=== PATIENT | female | born 1990 | race Caucasian/White ===

== ENCOUNTER → 2019-03-09 12:53 | Outpatient (CLI) | payer OTHER, SELFPAY ==
[2019-03-12 11:42] LABS: HPV Reflexed? NOT INDICATED
== END ==
PROVIDERS: Family Provider Family Medicine; PCP Family Medicine; Referring Provider Family Medicine; Visit Provider Family Medicine
DX: Z12.4 Encounter for screening for malignant neoplasm of cervix (principal)
CPT/HCPCS: 88175; G0145

== ENCOUNTER → 2020-02-25 | Outpatient (CLI) | payer OTHER, SELFPAY ==
[2020-02-25 10:32] VITALS: BMI 23.0
[2020-02-25 15:13] LABS: Amphetamine Urine VISTA NEGATIVE (<1000 ng/mL); Barbiturate Urine VISTA NEGATIVE (< 200 ng/mL); Benzodiazepine Urine VISTA NEGATIVE (< 200 ng/mL); Cocaine Urine VISTA NEGATIVE (< 300 ng/mL); Ecstacy Urine VISTA NEGATIVE (< 500 ng/mL); Methadone Urine VISTA NEGATIVE (< 300 ng/mL); PCP Urine VISTA NEGATIVE (< 25 ng/mL); THC Urine VISTA NEGATIVE (< 50 ng/mL); Vista UDS pH Range 6
[2020-02-28 03:07] LABS: Chlamydia By Nucleic Acid AMP Negative (Negative)
[2020-02-28 08:27] LABS: Gonococcus By Nucleic Acid AMP Negative (Negative)
== END | disposition home or self-care (01) ==
LOC: LABSPEC 13:48
PROVIDERS: PCP Family Medicine; Referring Provider Obstetrics & Gynecology; Visit Provider Obstetrics & Gynecology
DX: Z34.00 Encounter for supervision of normal first pregnancy, unspecified trimester (principal)
CPT/HCPCS: 80307; 87086; 87088; 87491; 87591

== ENCOUNTER → 2020-03-28 | Outpatient (CLI) | payer OTHER, SELFPAY ==
[2020-03-28 08:08] VITALS: BMI 23.1
[2020-03-28 09:33] LABS: Absolute Neutrophil Count 5.7 X10^3/uL (2.0-7.7); Basophil# 0.01 X10^3/uL; Basophil% 0.1 % (0-1); Eosinophil# 0.08 X10^3/uL; Hematocrit 39.3 % (37-47); Hemoglobin 13.2 g/dL (12.0-15.0); Lymphocyte % 22.5 % (19-41); Mean Corp Hgb Conc 33.6 g/dL (32-36); Mean Corpuscular Hgb 31.9 pg (27.0-32.0); Mean Corpuscular Volume 94.9 fL (81-99); Mean Platelet Vol. 10.2 fl (6.2-12.0); Monocyte# 0.38 X10^3/uL; Monocyte% 4.7 % (0-10); NRBC Flagged by Analyzer 0 % (0-5); Neutrophil # 5.71 X10^3/uL (2.7-7.7); Neutrophil % 71.3 % (47-70); Platelet Count 283 K/mm3 (150-450); RBC Distribution Width CV 12.4 % (11.6-14.6); RBC Distribution Width SD 42.7 fl (35.1-43.9); Red Blood Count 4.14 M/mm3 (4.2-5.4)
[2020-03-28 09:53] LABS: NATERA MAILED SPECIMEN
[2020-03-28 10:38] LABS: HIV - WCH Non-Reactive (Nonreactive); Hepatitis B Surface Antigen Non-Reactive (Nonreactive); Hepatitis C Antibody Non-Reactive (Nonreactive); Rubella IgG 72.8 IU/mL
[2020-04-03 03:02] LABS: Rapid Plasmin Reagin (RPR) NONREACTIVE (NONREACTIVE)
== END | disposition home or self-care (01) ==
LOC: LAB 08:50
PROVIDERS: Obstetrics & Gynecology; PCP Family Medicine; Referring Provider Obstetrics & Gynecology; Visit Provider Obstetrics & Gynecology
DX: Z34.81 Encounter for supervision of other normal pregnancy, first trimester (principal)
CPT/HCPCS: 36415; 85025; 86592; 86703; 86762; 86803; 86850; 86900; 86901; 87340

== ENCOUNTER → 2020-07-18 07:18 | Outpatient (CLI) | payer OTHER, SELFPAY ==
[2020-06-20 08:48] VITALS: BMI 24.3
[2020-07-18 08:08] LABS: Absolute Lymphocyte Count 1.72 X10^3/uL (0.83-4.51); Absolute Neutrophil Count 5.7 X10^3/uL (2.0-7.7); Basophil# 0.02 X10^3/uL; Basophil% 0.3 % (0-1); Eosinophil# 0.05 X10^3/uL; Eosinophils% 0.6 % (0-5); Hematocrit 35.1 % (37-47); Hemoglobin 12.1 g/dL (12.0-15.0); Lymphocyte # 1.72 X10^3/ul (4.0); Lymphocyte % 21.6 % (19-41); Mean Corp Hgb Conc 34.5 g/dL (32-36); Mean Corpuscular Hgb 32.8 pg (27.0-32.0); Mean Corpuscular Volume 95.1 fL (81-99); Mean Platelet Vol. 9.4 fl (6.2-12.0); Monocyte# 0.43 X10^3/uL; Monocyte% 5.4 % (0-10); NRBC Flagged by Analyzer 0 % (0-5); Neutrophil # 5.67 X10^3/uL (2.7-7.7); Neutrophil % 71.1 % (47-70); Platelet Count 246 K/mm3 (150-450); RBC Distribution Width CV 13.2 % (11.6-14.6); RBC Distribution Width SD 45.4 fl (35.1-43.9); Red Blood Count 3.69 M/mm3 (4.2-5.4)
[2020-07-18 08:34] LABS: Glucose Challenge Gest 1H 50g 105 mg/dL (70-140)
== END ==
PROVIDERS: PCP Family Medicine; Referring Provider Obstetrics & Gynecology; Visit Provider Obstetrics & Gynecology
DX: Z34.00 Encounter for supervision of normal first pregnancy, unspecified trimester (principal)
CPT/HCPCS: 36415; 82950; 85025

== ENCOUNTER → 2020-09-12 12:44 | Outpatient (CLI) | payer OTHER, SELFPAY ==
[2020-09-12 08:30] VITALS: BMI 24.7
--- NOTE | 2020-09-12 12:45 | US_ITS ---
STUDY: SECOND AND THIRD TRIMESTER OBSTETRICAL ULTRASOUND REASON FOR EXAM: Female, 29 years old growth . Small for dates. LMP: 12/29/2019 TECHNIQUE: Transabdominal TECHNICAL QUALITY: Adequate. PRIOR ULTRASOUND: None. FINDINGS: There is a single intrauterine fetus. The fetus is in a cephalic presentation. There is demonstrated cardiac activity with a heart rate of 144 bpm. There is a normal amniotic fluid volume. The largest amniotic fluid pocket measures 3.6 cm. The amniotic fluid index (CLARISSA) is 10.8 cm. The placenta is anterior in location and is not low lying. There are Grade 1 placental changes. The cervix was not utilized due to the head positioning. The adnexal regions are not visualized. BIOMETRY: BPD: 8.72 cm: 35 weeks, 1 days HC: 31.54 cm: 35 weeks, 2 days AC: 32.42 cm: 36 weeks, 2 days FL: 6.69 cm: 34 weeks, 2 days CI: 80.7% FL/BPD: 78% FL/HC: FL/AC: 20.6% HC/AC: 0.97 age by current US: 35 weeks, 0 days. KRISTA by current US: 10/17/2020. Estimated weight: 2756 grams, +/- 413 grams, 27 %. Age by LMP: 36 weeks, 6 days. KRISTA by LMP: 10/04/2020. US/OB Limited With Biometrics IMPRESSION: Single live intrauterine gestation with a mean gestational age of 36 weeks and 6 days. Electronically Signed: Rojelio Bojorquez MD at 15:23 EDT , Service support ,
== END ==
PROVIDERS: PCP Family Medicine; Referring Provider Obstetrics & Gynecology; Visit Provider Obstetrics & Gynecology
DX: O26.849 Uterine size-date discrepancy, unspecified trimester (principal); Z3A.00 Weeks of gestation of pregnancy not specified
CPT/HCPCS: 76816; 87081

== ENCOUNTER 2020-09-26 10:43 | Inpatient (IN) | payer OTHER, SELFPAY ==
[2020-08-01 08:24] VITALS: BMI 24.4
[2020-09-26] VITALS (56 sets, daily range): BP systolic 101–150; BP diastolic 54–82; PULSE 59–107; TEMP 36.8–37.6; O2SAT 88–100; BMI 24.9; BMI 24.5
[2020-09-26] MEDS: Lactated Ringers 1,000 ML 50 ML IV (11:00)
[2020-09-26 11:13] LABS: Absolute Neutrophil Count 5.7 X10^3/uL (2.0-7.7); Basophil# 0.02 X10^3/uL; Basophil% 0.3 % (0-1); Eosinophil# 0.03 X10^3/uL; Eosinophils% 0.4 % (0-5); Hematocrit 38.2 % (37-47); Hemoglobin 13.3 g/dL (12.0-15.0); Lymphocyte % 19.1 % (19-41); Mean Corp Hgb Conc 34.8 g/dL (32-36); Mean Corpuscular Hgb 33.1 pg (27.0-32.0); Mean Platelet Vol. 10.2 fl (6.2-12.0); Monocyte# 0.56 X10^3/uL; Monocyte% 7.1 % (0-10); NRBC Flagged by Analyzer 0 % (0-5); Neutrophil # 5.71 X10^3/uL (2.7-7.7); Neutrophil % 72.6 % (47-70); Platelet Count 219 K/mm3 (150-450); RBC Distribution Width SD 45.4 fl (35.1-43.9); Red Blood Count 4.02 M/mm3 (4.2-5.4); White Blood Count 7.9 K/mm3 (4.4-11.0)
[2020-09-26] MEDS: Oxytocin 30 units/NS 500 ml 30 UNITS/500 ML IV.SOLN IV (11:49)
--- NOTE | 2020-09-26 11:59 | PCM.HPOB.BLA ---
- Problem List (1) Oligohydramnios Status: Acute (2) 37 weeks gestation of Status: Acute Comment: received covid vaccine doesn't need tested (3) History of tetanus, diphtheria, and acellular pertussis booster vaccination (Tdap) Status: Acute Comment: Given 08/01/20 (4) Status: Acute Qualifiers: Comment: genetic- low risk, carrier and NTD, negative ; NL anatomy (5) Supervision of normal first Status: Acute Qualifiers: Comment: [id number] KRISTA: 10/04/20 Boy! Anurag Spouse: Chris (Will) History and Physical Date of Admission: 09/26/20 Intake Vital Signs 09/26/20 Height 5 ft 4 in 09/26/20 Weight: 145 lb 09/26/20 BMI 24.9 09/26/20 BP 122/86 H Intake Visit Reasons: 38 WK OB Chief Complaint: est ob Merchandising Lead Required: No Is patient in pain?: No Allergies No Known Allergies Allergy (Verified 09/26/20 08:51) Medications multivitamin no.47-iron fum 27 mg-folate no.1 1 mg-dha 300 mg capsule cap PO 02/25/20 [History Confirmed 09/26/20] Last Menstral Period: 11/23/19 Zika: Zika virus screening: Negative : No PFSH PFSH Family History Father Cancer throat Social History (Updated 09/26/20 @ 09:[address] 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 Upon evaluation patient was found to have low fundal height and CLARISSA was checked and had to be 3 cm. Patient denies any loss of fluid admits good movement. OB Visit KRISTA Calculator Estimated Delivery Date Method Current WG Current Estimate 10/04/20 Ultrasound #1 38w 6d Other Estimates 08/29/20 LMP (Uncertain) 44w 0d Expected Delivery Route/Plan Labor Preferences- CB/BF classes: done labor support person: Chris labor intervention preferences: open to standard interventions, wants to stay moving during labor, ok with baby meds pain management options preferred: desires natural labor cut cord/dad catch: cord, maybe delivery : yes PP control planned: undecided discussed possible routes of delivery and associated risks: discussed possible delivery modalities and possible indications for each including R/B/A of , VAVD, FAVD and CS. questions answered. special requests: none Specific Issue/Plans flu vaccine: given 03/28 tdap vaccine: 08/01 rhogam: na LARC form signed: declined movement and labor precautions reviewed. Problem list reviewed and updated with the most current plan of care details and appropriate orders placed. Relevant counseling for the gestational age provided. Continue routine care and follow up unless otherwise noted in visit notes/problem list details Initial Weight: 134 lb Date EGA Weight BP Urine Prot Glucose FHR FuHt Pres Dilation Effaced St Visit Note 02/25/20 8w 2d 134 lb (+0 oz) 116/62 170 GP - CRL 15mm. KRISTA changed as this is 5 weeks off from menses. 03/28/20 12w 6d 135 lb (+16 oz) 116/76 Negative Negative 150 Sm- no vb cramping 04/25/20 16w 6d 135 lb (+16 oz) 116/74 Negative Negative 145 SM- no vb cramping 05/26/20 21w 2d 140 lb (+6 lb) 122/70 Negative Negative 142 MH-Some movement:ant placenta. No VB, LOF. Anatomy US today. Enc CB classes 06/20/20 24w 6d 141 lb 8 oz (+7 lb 8 oz) 120/80 Negative Negative 145 GP - no LOF, VB, DFM, ctx. Discussed COVID vaccine. GCT next visit. 07/18/20 28w 6d 143 lb 4 oz (+9 lb 4 oz) 118/78 Negative Negative 155 28 GP - no LOF, VB, DFM, ctx. 28w labs normal. Will wait on TDAP vaccine as getting COVID vaccine today. 08/01/20 30w 6d 142 lb 6 oz (+8 lb 6 oz) 110/70 Negative Negative 155 30 GP - no LOF, VB, DFM, ctx. Got first covid vaccine. Closing on [place] 08/11. 08/15/20 32w 6d 145 lb (+11 lb) 110/72 Negative Negative 155 32 GP - no LOF, VB, DFM, ctx. Discussed labor preferences and routes of delivery. 08/29/20 34w 6d 143 lb (+9 lb) 118/86 Negative Negative 155 34 GP - no LOF, VB, DFM, ctx. Moved into house last weekend - still need to get nursery set up. 09/12/20 36w 6d 144 lb (+10 lb) 114/80 Negative Negative 150 34 GP - no LOF, VB, DFM, ctx. GBS done today. GP - no LOF, VB, DFM, ctx. GBS done today. Measuring 2w behind. Growth US scheduled. 09/19/20 37w 6d 144 lb (+10 lb) 112/82 155 35 Cephalic 1 60 -1 SM- no vb lof good fm no regular ctx 09/26/20 38w 6d 145 lb (+11 lb) 122/86 Negative Negative 145 32 Cephalic 2 70 -1 SM- no vb lof good fm no regular ctx. discussed low FH, recommend IOL for oligo. CLARISSA 3 cm ACOG First Trimester First Trimester: Desire for , Alcohol, Tobacco Cessation, Illicit/Recreational Drug/Substance Use, Barriers to care, Communication Barriers, Toxoplasmosis Precations, Use of Any medications, Sexual activity, Exercise, Dental Care, Sauna/Hot tub use, Seat Belt use, and Screening for Aneuploidy Second Trimester Second Trimester: Signs and Symptoms of Labor, Selecting a care provider, Reproductive Life Planning, Care Planning, Tobacco Cessation, Depression/Anxiety and Intimate Partner Violence Third Trimester Third Trimester: Pain Management Plans, Labor support person(s), Immediate Larc, Movement Monitoring and Feeding Yes ; discussed Trial of Labor after Counseling or discussed Circumcision preference Diagnostics Diagnostics Diagnostics Blood Type O POSITIVE 03/28/20 Antibody Screen NEGATIVE 03/28/20 Glucose 1 Hr 50 gm 105 mg/dL (70-140) 07/18/20 HIV 1&2 Antibody Non-Reactive (Nonreactive) 03/28/20 Rubella IgG Antibody 72.8 IU/mL 03/28/20 Hgb 12.1 g/dL (12.0-15.0) 07/18/20 Hct 35.1 % (37-47) L 07/18/20 RPR NONREACTIVE (NONREACTIVE) 03/28/20 Details: HIV: Urine Culture: Sequential Screen: NIPT Screen: ROS Const Reports system reviewed and no additional complaints, except as docu Card Reports system reviewed and no additional complaints, except as docu Resp Reports system reviewed and no additional complaints, except as docu GI Reports system reviewed and no additional complaints, except as docu, Reports nausea Reports system reviewed and no additional complaints, except as docu Musc Reports system reviewed and no additional complaints, except as docu Exam Const General: cooperative, healthy appearing, comfortable, anxious HENMT Head: normal to inspection Nose: external nose normal Face and sinus: normal facial exam Neck Neck: normal visual inspection, full ROM, no lymphadenopathy Thyroid: thyroid normal Chest Chest palpation & inspection: normal inspection of the chest Resp Effort & Inspection: normal respiratory effort GI Inspection: normal to inspection Palpation: soft, other (gravid uterus) Other: infant vertex and appropriate size for gestational age Other: Cervical Exam: Extrem General: pedal edema Results POC Urinalysis 2 Dip (Clinic) Office Urine Glucose Negative Last Edit by Nicole Delgado on 09/26/20 08:55 Office Urine Protein Negative Last Edit by Nicole Delgado on 09/26/20 08:55 Assessment & Plan Problems 1. Encounter for supervision of normal first in third trimester Z34.03 [id number] KRISTA: 10/04/20 Boy! Anurag Spouse: Chris (Will) 2. 38 weeks gestation of Z3A.38 genetic- low risk, carrier and NTD, negative ; NL anatomy 3. History of tetanus, diphtheria, and acellular pertussis booster vaccination (Tdap) Z92.29 Given 08/01/20 4. 37 weeks gestation of Z3A.37 received covid vaccine doesn't need tested Plan Patient presents IOL, plan management for with pit/fb. Pain management: plans epidural. GBS negative. Management of any complications: Oligo CLARISSA 3 cm I have reviewed the [facility] and made any clinically relevant updates. UPDATE- I have seen the patient and performed any clinically relevant updates to the history and physical exam. Jacqueline Mccullough MD
[2020-09-26] MEDS: 0.9% Normal Saline Single 100 ML IV.SOLN. INTRA-UTER (12:35)
[2020-09-26] MEDS: Lactated Ringers 500 ML 999 ML IV (19:59)
[2020-09-26] MEDS: fentaNYL-bupivacaine (epidural) 100 ML BAG EPIDURAL (21:41)
[2020-09-26] MEDS: Lactated Ringers 1,000 ML 200 ML IV (22:19)
[2020-09-26] MEDS: Oxytocin 30 units/NS 500 ml 30 UNITS/500 ML IV.SOLN 334 UNITS IV (23:33)
[2020-09-26] MEDS: Methylergonovine 0.2 MG/ML Ampul IM (23:35)
--- NOTE | 2020-09-26 23:47 | PCM.OPRPT ---
Problem List (1) Oligohydramnios Status: Acute (2) 37 weeks gestation of Status: Acute Comment: received covid vaccine doesn't need tested (3) History of tetanus, diphtheria, and acellular pertussis booster vaccination (Tdap) Status: Acute Comment: Given 08/01/20 (4) Status: Acute Qualifiers: Comment: genetic- low risk, carrier and NTD, negative ; NL anatomy (5) Supervision of normal first Status: Acute Qualifiers: Comment: [id number] KRISTA: 10/04/20 Boy! Anurag Spouse: Chris (Will) Vaginal Delivery Maternal Presentation: Active Labor 29-year-old G1, P0 at 38 weeks gestation admitted for induction of labor for oligohydramnios. Patient was induced with Grurola bulb and Pitocin. Method of Induction: Pitocin, Gurrola Bulb Amniotic Membrane Rupture Type: Artificial Amniotic Fluid Description: Clear Final KRISTA: 10/04/20 Gestational age: 38 Weeks and 6 Days Date of Procedure: 09/26/20 Pre-Operative Diagnosis: Term , induction for oligohydramnios Post-Operative Diagnosis: Same Surgery/ Procedure Performed: Spontaneous Vaginal Delivery Type of Anesthesia: Epidural Description of Procedure: Patient began pushing and after 20 minutes delivered the head in the CRISTOBAL presentation. The head was delivered atraumatically and no nuchal cord was noted. The anterior and posterior shoulders delivered without complication followed by the rest of the infant and the infant was placed on the maternal abdomen. Delayed cord clamping was employed for approximately 60 seconds. Cord was clamped and cut and gentle traction was applied to the cord and the placenta delivered spontaneously immediately following it was noted to be intact with three-vessel cord. The perineum and vagina were inspected and a midline first-degree perineal laceration was noted and repaired in the standard fashion using 3-0 Vicryl repeat suture. EBL was 250 cc. Patient and infant tolerated delivery well. Presentation: Vertex, CIRSTOBAL Placental Delivery Description: Spontaneous Placenta Disposition: [facility] Cord Vessel Description: 3 Vessels Cord Entanglement: None Drain: Gurrola to straight drain Estimated Blood Loss: 250 Infant A gender: Male (1 minute): 8 (5 minute): 9 Episiotomy Description: None Laceration: Midline, Perineal Extension/lac, 1st degree Medications given after delivery: IV Pitocin, IM Methergin Complications: None Multi Select Codes - Urinary/Genital Urinary/Genital CPT Codes: 07625 Vaginal Delivery [facility]
--- NOTE | 2020-09-26 23:50 | DCINST_ITS ---
Discharge Diet: No Restrictions Discharge Activity: Return to Normal Activity, May not drive while taking narcotic pain medications., May Shower May resume sexual activity in: 4-6 weeks Additional Activity Instructions:: Nothing in the vagina for 4-6 weeks. You may return to work/school in 6 weeks. Call your doctor if your incision/area has: Continuous Slow Oozing, Sudden Increased Bleeding, Increased Pain/ Swelling, Increased Redness, Foul Smelling Discharge Additional Instructions: If you experience any of the following, contact your healthcare provider. * Bleeding that soaks a pad every hour for 2 hours * Fever 100.4 or higher * Unrelieved incision or abdominal pain * Swelling, redness, discharge or bleeding from your incision or episiotomy site * Your incision begins to separate * Problems urinating (including inability to urinate or burning while urinating). * Visual changes * Severe headache * Flu-like symptoms * Pain or redness in one of both of your breasts * Pain, warmth, tenderness or swelling in your legs, especially the calf area * Frequent nausea and vomiting * Symptoms of depression or anxiety If you experience any of the following, call 911 or go to the nearest Emergency Room. * Chest pain * Problems breathing * Seizure activity * Partial or complete paralysis of a body part, slurred speech, weakness or drooping of the face, or a sudden inability to walk or hold your balance Allergies/Adverse Reactions: Allergies No Known Allergies Allergy (Verified 09/26/20 11:17) Medications to take at Discharge Prenatabs FA 09/26/20 When: Call to make an appointment with your doctor in 6 weeks. If you had elevated Blood Pressure or 4th degree laceration you will need to be seen in 2 weeks. Primary Care Physician: Qiana Perkins MD [Primary Care Provider] - Test Results: Test results from this visit will be discussed in further detail at your follow- up appointment, if applicable.
[2020-09-27] VITALS (16 sets, daily range): BP systolic 106–162; BP diastolic 59–95; PULSE 52–80; RESP 14–18; TEMP 36.4–36.9; O2SAT 97–98
[2020-09-27] MEDS: 0.9% Saline Lock 10 ML Syringe IV (01:51)
--- NOTE | 2020-09-27 08:53 | PN.OBGYN_ITS ---
Patient Problems: Active and Suspected Problems (Last Reviewed 09/26/20 @ 08:52 by Nicole Delgado) Oligohydramnios (Acute) 37 weeks gestation of (Acute) received covid vaccine doesn't need tested History of tetanus, diphtheria, and acellular pertussis booster vaccination (Tdap) (Acute) Given 08/01/20 Supervision of normal first (Acute) [id number] KRISTA: 10/04/20 Boy! Anurag Spouse: Chris Young) (Acute) genetic- low risk, carrier and NTD, negative ; NL anatomy Subjective: Patient doing well without complaints. Tolerating PO. Ambulating and voiding without difficulty. Breast feeding well. Denies chest pain, shortness of breath, calf pain/swelling, fevers, chills, lightheadedness. - Physical Exam Vitals/I&O's: Vital Signs Temp Pulse Resp BP Pulse Ox 98.4 F 72 16 128/69 H 97 09/27/20 03:45 09/27/20 03:45 09/27/20 03:45 09/27/20 03:45 09/27/20 01:26 Oxygen Delivery Method Room Air Weight: 143 lb 1.28 oz Body Mass Index (BMI) 24.5 Intake and Output for Last 24 Hours 09/25/20 09/26/20 09/27/20 23:59 23:59 23:59 Intake Total 1940.10 / 1940.10 422.27 / 422.27 Output Total 300 / 300 1100 / 1100 Balance 1640.10 / 1640.10 -677.73 / -677.73 General: Alert, Oriented x3, Cooperative, No apparent distress, Well developed, Well nourished HEENT: Atraumatic, PERRLA, EOMI, Normocephalic Neck: Supple, No JVD Lungs: Normal air movement Cardiovascular: Regular rate, Regular Rhythm Abdomen: Soft, Non Tender, Non-Distended Extremities: No edema, No Calf Tenderness Neurological: Cranial nerves II-XII grossly intact, Neuro grossly intact Psych/Mental Status: Normal Affect, Appropriate Laboratory Results 09/26/20 11:00: WBC 7.9, RBC 4.02 L, Hgb 13.3, Hct 38.2, MCV 95.0, MCH 33.1 H, MCHC 34.8, RDW Std Deviation 45.4 H, RDW Coeff of Tre 13.0, Plt Count 219, MPV 10.2, Immature Gran % (Auto) 0.500, Neut % (Auto) 72.6 H, Lymph % (Auto) 19.1, [place] % (Auto) 7.1, Eos % (Auto) 0.4, Baso % (Auto) 0.3, Absolute Neuts (auto) 5.7, Absolute Lymphs (auto) 1.50, Nucleated RBC % 0 09/26/20 11:00: Blood Type O POSITIVE, Antibody Screen NEGATIVE Current Medications Acetaminophen (Acetaminophen 500 Mg Tablet) 1,000 mg PO Q8H PRN PRN PRN Reason: Pain Score 1-3 Bisacodyl (Bisacodyl 10 Mg Suppository) 10 mg RC UD PRN PRN Reason: If no BM Dibucaine (Dibucaine 30 Gm Tube) 1 applic TOPICAL TID PRN PRN; Protocol PRN Reason: Discomfort Hydrocortisone (Hydrocortisone 2.5% Crm) 1 applic TOPICAL TID PRN PRN; Protocol PRN Reason: Discomfort Methylergonovine Maleate (Methylergonovine 0.2 Mg/Ml Ampul) 0.2 mg IM X1 PRN PRN Reason: Excess bleeding/uterine atony Last Admin: 09/26/20 23:35 Dose: 0.2 mg Documented by: Naproxen (Naproxen 250 Mg Tablet) 500 mg PO Q8H PRN PRN PRN Reason: Pain Score 1-3 Ondansetron HCl (Ondansetron 4 Mg/2 Ml Vial) 4 mg IV Q4H PRN PRN PRN Reason: Nausea Oxycodone HCl (Oxycodone 5 Mg Tablet) 5 - 10 mg PO Q4H PRN PRN PRN Reason: Pain Score 4-10 Senna/Docusate Sodium (Senna/Docusate Sodium 1 Tablet) 1 - 2 tablet PO DAILY PRN PRN PRN Reason: Constipation Simethicone (Simethicone 80 Mg Tablet) 80 mg PO PCHS PRN PRN Reason: Indigestion/Stomach pain Sodium Chloride (0.9% Saline Lock 10 Ml Syringe) 5 - 15 ml IV UD PRN PRN Reason: SALINE FLUSH Last Admin: 09/27/20 01:51 Dose: 10 ml Documented by: Medical Necessity - Tobacco Use Smoking Status: Never smoker Assessment/Plan All Active Problems (Last Reviewed 09/26/20 @ 08:52 by Nicole Delgado) Oligohydramnios (Acute) 37 weeks gestation of (Acute) History of tetanus, diphtheria, and acellular pertussis booster vaccination (Tdap) (Acute) Supervision of normal first (Acute) (Acute) s/p PPD # 1 1. routine post delivery care 2. breast feeding- support given 3. rh positive 4. rubella immune
[2020-09-27] MEDS: Acetaminophen 500 MG Tablet 1000 MG PO ×2 (13:15→21:09)
[2020-09-28 02:00] VITALS: BP 122/83; PULSE 59; RESP 18; TEMP 36.6; O2SAT 97
[2020-09-28 07:50] VITALS: BP 114/71; PULSE 67; RESP 18; TEMP 36.3; O2SAT 95
--- NOTE | 2020-09-28 09:34 | PCM.PN.OB ---
Patient Problems: Active and Suspected Problems (Last Reviewed 09/26/20 @ 08:52 by Nicole Delgado) Oligohydramnios (Acute) 37 weeks gestation of (Acute) received covid vaccine doesn't need tested History of tetanus, diphtheria, and acellular pertussis booster vaccination (Tdap) (Acute) Given 08/01/20 Supervision of normal first (Acute) [id number] KRISTA: 10/04/20 Boy! Anurag Spouse: Chris Young) (Acute) genetic- low risk, carrier and NTD, negative ; NL anatomy Subjective: Patient doing well without complaints. Tolerating PO. Ambulating and voiding without difficulty. Breast feeding well. Denies chest pain, shortness of breath, calf pain/swelling, fevers, chills, lightheadedness. - Physical Exam Vitals/I&O's: Vital Signs Temp Pulse Resp BP Pulse Ox 97.4 F L 67 18 114/71 95 09/28/20 07:50 09/28/20 07:50 09/28/20 07:50 09/28/20 07:50 09/28/20 07:50 Oxygen Delivery Method Room Air Weight: 143 lb 1.28 oz Body Mass Index (BMI) 24.5 Intake and Output for Last 24 Hours 09/26/20 09/27/20 09/28/20 23:59 23:59 23:59 Intake Total 1940.10 / 1940.10 422.27 / 422.27 Output Total 300 / 300 1100 / 1100 Balance 1640.10 / 1640.10 -677.73 / -677.73 General: Alert, Oriented x3, Cooperative, No apparent distress, Well developed, Well nourished HEENT: Atraumatic, PERRLA, EOMI, Normocephalic Neck: Supple, No JVD Lungs: Normal air movement Cardiovascular: Regular rate Abdomen: Soft, Non Tender, Non-Distended, - - fundus firm Extremities: No edema, No Calf Tenderness Neurological: Cranial nerves II-XII grossly intact, Neuro grossly intact Psych/Mental Status: Normal Affect, Appropriate Current Medications Acetaminophen (Acetaminophen 500 Mg Tablet) 1,000 mg PO Q8H PRN PRN PRN Reason: Pain Score 1-3 Last Admin: 09/27/20 21:09 Dose: 1,000 mg Documented by: Bisacodyl (Bisacodyl 10 Mg Suppository) 10 mg RC UD PRN PRN Reason: If no BM Dibucaine (Dibucaine 30 Gm Tube) 1 applic TOPICAL TID PRN PRN; Protocol PRN Reason: Discomfort Hydrocortisone (Hydrocortisone 2.5% Crm) 1 applic TOPICAL TID PRN PRN; Protocol PRN Reason: Discomfort Methylergonovine Maleate (Methylergonovine 0.2 Mg/Ml Ampul) 0.2 mg IM X1 PRN PRN Reason: Excess bleeding/uterine atony Last Admin: 09/26/20 23:35 Dose: 0.2 mg Documented by: Naproxen (Naproxen 250 Mg Tablet) 500 mg PO Q8H PRN PRN PRN Reason: Pain Score 1-3 Ondansetron HCl (Ondansetron 4 Mg/2 Ml Vial) 4 mg IV Q4H PRN PRN PRN Reason: Nausea Oxycodone HCl (Oxycodone 5 Mg Tablet) 5 - 10 mg PO Q4H PRN PRN PRN Reason: Pain Score 4-10 Senna/Docusate Sodium (Senna/Docusate Sodium 1 Tablet) 1 - 2 tablet PO DAILY PRN PRN PRN Reason: Constipation Simethicone (Simethicone 80 Mg Tablet) 80 mg PO PCHS PRN PRN Reason: Indigestion/Stomach pain Sodium Chloride (0.9% Saline Lock 10 Ml Syringe) 5 - 15 ml IV UD PRN PRN Reason: SALINE FLUSH Last Admin: 09/27/20 01:51 Dose: 10 ml Documented by: Medical Necessity - Tobacco Use Smoking Status: Never smoker Assessment/Plan All Active Problems (Last Reviewed 09/26/20 @ 08:52 by Nicole Delgado) Oligohydramnios (Acute) 37 weeks gestation of (Acute) History of tetanus, diphtheria, and acellular pertussis booster vaccination (Tdap) (Acute) Supervision of normal first (Acute) (Acute) s/p PPD # 2 1. routine post delivery care 2. breast feeding- support given 3. rh positive 4. rubella immune
[2020-09-28] MEDS: Senna/Docusate Sodium 1 Tablet PO (11:05)
[2020-09-28 13:20] VITALS: BP 135/84; PULSE 59; RESP 16; TEMP 36.8
== END 2020-09-28 15:45 | disposition home or self-care (01) | DRG 807 ==
PROVIDERS: Admitting Provider Obstetrics & Gynecology; PCP Family Medicine; Visit Provider Obstetrics & Gynecology
DX: O41.03X0 Oligohydramnios, third trimester, not applicable or unspecified (principal); Z37.0 Single live birth; O70.0 First degree perineal laceration during delivery; Z3A.38 38 weeks gestation of pregnancy
CPT/HCPCS: 59025; 59050; 85025; 86850; 86900; 86901; 99218; J7120; A4216; G0378

== ENCOUNTER 2021-07-21 15:50 | Outpatient (CLI) | payer OTHER, SELFPAY ==
[2021-07-21 17:55] LABS: hCG Titer Quant., Serum 12166 mIU/mL (1-3)
== END 2021-07-21 23:59 | disposition home or self-care (01) ==
LOC: LAB 15:52
PROVIDERS: PCP Family Medicine; Visit Provider Obstetrics & Gynecology
DX: N91.2 Amenorrhea, unspecified (principal)
CPT/HCPCS: 36415; 84702

== ENCOUNTER 2021-07-24 13:55 | Outpatient (CLI) | payer OTHER, SELFPAY ==
--- NOTE | 2021-07-24 13:56 | US_ITS ---
STUDY: FIRST TRIMESTER OBSTETRICAL ULTRASOUND REASON FOR EXAM: Female, 30 years old . Dating. LMP: Unknown TECHNIQUE: Transvaginal TECHNICAL QUALITY: Adequate. PRIOR ULTRASOUND: None. FINDINGS: There is visualization of a single gestational sac in a normal intrauterine position. The mean sac diameter (MSD) measures 1.4 cm, indicating an estimated gestational age (EGA) of 6 weeks, 1 days. The gestational sac shape is within normal limits. There is a visualized yolk sac. The yolk sac measures 3 mm. The placenta is non-visualized. There is visualization of a live embryo. The crown-rump length (CRL) measures 5.4 mm, indicating an estimated gestational age (EGA) of 6 weeks, 3 days. There is demonstrated cardiac activity with a heart rate of 121 bpm. The estimated gestation age (EGA) by US is 6 weeks, 3 days. The estimated date of delivery (KRISTA) by US is 03/17/2022. The uterus measures 9.2 cm x 6.3 cm x 5.6 cm. There is no demonstrated uterine fibroid. The cervix is closed. The right ovary measures 2.6 cm x 2.4 cm x 1.7 cm. There is no right ovarian cyst. There is no visualized right adnexal mass or complex lesion. The left ovary measures 2.7 cm x 1.9 cm x 1 cm. There is no left ovarian cyst. There is no visualized left adnexal mass or complex lesion. There is no fluid in the cul de sac. US/Transvaginal w/Preg US IMPRESSION: Single live uterine gestation with mean gestational age of 6 weeks and 3 days. Electronically Signed: Rojelio Bojorquez MD at 10:05 EST ,
== END 2021-07-24 23:59 | disposition home or self-care (01) ==
LOC: OPUS 13:55
PROVIDERS: PCP Family Medicine; Referring Provider Obstetrics & Gynecology; Visit Provider Obstetrics & Gynecology
DX: Z34.90 Encounter for supervision of normal pregnancy, unspecified, unspecified trimester (principal)
CPT/HCPCS: 76817

== ENCOUNTER 2021-08-14 10:20 | Outpatient (CLI) | payer OTHER, SELFPAY ==
[2021-08-13 18:14] LABS: Amphetamine Urine VISTA NEGATIVE (<1000 ng/mL); Barbiturate Urine VISTA NEGATIVE (< 200 ng/mL); Benzodiazepine Urine VISTA NEGATIVE (< 200 ng/mL); Cocaine Urine VISTA NEGATIVE (< 300 ng/mL); Ecstacy Urine VISTA NEGATIVE (< 500 ng/mL); Methadone Urine VISTA NEGATIVE (< 300 ng/mL); PCP Urine VISTA NEGATIVE (< 25 ng/mL); THC Urine VISTA NEGATIVE (< 50 ng/mL); Vista UDS pH Range 5
[2021-08-18 00:06] LABS: Chlamydia By Nucleic Acid AMP Negative (Negative)
[2021-08-18 11:53] LABS: Gonococcus By Nucleic Acid AMP Negative (Negative)
[2021-08-19 13:21] LABS: HPV APTIMA, High Risk Negative (Negative)
== END 2021-08-14 23:59 | disposition home or self-care (01) ==
PROVIDERS: PCP Family Medicine; Visit Provider Obstetrics & Gynecology
DX: Z34.80 Encounter for supervision of other normal pregnancy, unspecified trimester (principal)
CPT/HCPCS: 80307; 87086; 87088; 87491; 87591; 87624; 88175; G0145

== ENCOUNTER 2021-08-17 15:54 | Outpatient (CLI) | payer OTHER, SELFPAY ==
[2021-08-17 17:00] LABS: NATERA MAILED SPECIMEN
[2021-08-17 17:20] LABS: Absolute Lymphocyte Count 2.52 X10^3/uL (0.83-4.51); Absolute Neutrophil Count 6.4 X10^3/uL (2.0-7.7); Basophil# 0.03 X10^3/uL; Basophil% 0.3 % (0-1); Eosinophil# 0.09 X10^3/uL; Eosinophils% 0.9 % (0-5); Hematocrit 37.5 % (37-47); Hemoglobin 12.7 g/dL (12.0-15.0); Lymphocyte # 2.52 X10^3/ul (0.83-4.51); Lymphocyte % 26.4 % (19-41); Mean Corp Hgb Conc 33.9 g/dL (32-36); Mean Corpuscular Hgb 31.8 pg (27.0-32.0); Mean Corpuscular Volume 93.8 fL (81-99); Mean Platelet Vol. 10.8 fl (6.2-12.0); Monocyte# 0.51 X10^3/uL; Monocyte% 5.4 % (0-10); NRBC Flagged by Analyzer 0 % (0-5); Neutrophil # 6.35 X10^3/uL (2.7-7.7); Neutrophil % 66.7 % (47-70); Platelet Count 271 K/mm3 (150-450); RBC Distribution Width CV 12.8 % (11.6-14.6); RBC Distribution Width SD 44.1 fl (35.1-43.9); White Blood Count 9.5 K/mm3 (4.4-11.0)
[2021-08-18 09:03] LABS: HIV - WCH Non-Reactive (Nonreactive); Hepatitis B Surface Antigen Non-Reactive (Nonreactive); Hepatitis C Antibody Non-Reactive (Nonreactive); Rubella IgG Reactive (Nonreactive); Syphilis Antibodies Non-reactive
== END 2021-08-17 23:59 | disposition home or self-care (01) ==
LOC: LAB 15:56
PROVIDERS: PCP Family Medicine; Referring Provider Obstetrics & Gynecology; Visit Provider Obstetrics & Gynecology
DX: Z34.81 Encounter for supervision of other normal pregnancy, first trimester (principal)
CPT/HCPCS: 36415; 85025; 86703; 86762; 86780; 86803; 86850; 86900; 86901; 87340

== ENCOUNTER → 2021-12-18 | Outpatient (CLI) | payer OTHER, SELFPAY ==
[2021-12-18 09:11] LABS: Absolute Neutrophil Count 3.2 X10^3/uL (2.0-7.7); Basophil# 0.01 X10^3/uL; Basophil% 0.2 % (0-1); Eosinophil# 0.03 X10^3/uL; Eosinophils% 0.6 % (0-5); Hemoglobin 12.1 g/dL (12.0-15.0); Lymphocyte % 33.7 % (19-41); Mean Corp Hgb Conc 34.6 g/dL (32-36); Mean Corpuscular Hgb 32.1 pg (27.0-32.0); Mean Corpuscular Volume 92.8 fL (81-99); Mean Platelet Vol. 9.3 fl (6.2-12.0); Monocyte# 0.26 X10^3/uL; Monocyte% 4.9 % (0-10); NRBC Flagged by Analyzer 0 % (0-5); Neutrophil # 3.21 X10^3/uL (2.7-7.7); Platelet Count 242 K/mm3 (150-450); RBC Distribution Width CV 13.1 % (11.6-14.6); RBC Distribution Width SD 44.6 fl (35.1-43.9); Red Blood Count 3.77 M/mm3 (4.2-5.4); White Blood Count 5.3 K/mm3 (4.4-11.0)
[2021-12-18 09:45] LABS: Glucose Challenge Gest 1H 50g 110 mg/dL (70-140)
== END | disposition home or self-care (01) ==
LOC: LAB 08:16
PROVIDERS: PCP Family Medicine; Visit Provider Obstetrics & Gynecology
DX: Z34.90 Encounter for supervision of normal pregnancy, unspecified, unspecified trimester (principal); Z3A.14 14 weeks gestation of pregnancy
CPT/HCPCS: 36415; 82950; 85025

== ENCOUNTER → 2022-01-19 | Outpatient (CLI) | payer OTHER, SELFPAY ==
--- NOTE | 2022-01-19 15:55 | US_ITS ---
STUDY: SECOND AND THIRD TRIMESTER OBSTETRICAL ULTRASOUND - LIMITED REASON FOR EXAM: Female, 31 years old. growth. LMP: 06/03/2021 PRIOR ULTRASOUND: 07/24/2021. TECHNIQUE: Transabdominal TECHNICAL QUALITY: Adequate. FINDINGS: There is a single intrauterine fetus. The fetus is in a cephalic presentation. There is demonstrated cardiac activity with a heart rate of 127 bpm. There is a normal amniotic fluid volume. The largest amniotic fluid pocket measures 5.28 cm. The amniotic fluid index (CLARISSA) is 13.96 cm. The placenta is anterior in location and is not low lying. There are Grade 1 placental changes. The cervix measures 4 cm in length. BIOMETRY: BPD: 7.53 cm: 30 weeks, 2 days HC: 28.89 cm: 31 weeks, 6 days AC: 27.96 cm: 32 weeks, 0 days FL: 6 cm: 31 weeks, 2 days Age by LMP: 32 weeks, 6 days. KRISTA by LMP: 03/10/2022.. age by prior US: 31 weeks, 6 days. KRISTA by prior US: 03/17/2020. age by current US: 31 weeks, 2 days. KRISTA by current US: 03/21/2022. Estimated weight: 1795 grams, +/- 269 grams, 11.7 percentile. Gender: Indeterminant US/OB Limited With Biometrics IMPRESSION: 1. Live single intrauterine at 31 weeks, 2 days. KRISTA is 03/21/2022. There is adequate interval growth since the prior ultrasound. 2. EFW of 1795 g. This is at the 12th percentile. 3. CLARISSA of 13.96 cm. 4. Anterior grade 1 placenta. 5. Vertex presentation. Electronically Signed: Fredis Miller DO at 21:24 EDT ,
== END | disposition home or self-care (01) ==
LOC: US 15:53
PROVIDERS: PCP Family Medicine; Referring Provider Obstetrics & Gynecology; Visit Provider Obstetrics & Gynecology
DX: O98.513 Other viral diseases complicating pregnancy, third trimester (principal); U07.1 COVID-19; Z3A.31 31 weeks gestation of pregnancy
CPT/HCPCS: 76816

== ENCOUNTER → 2022-02-12 | Outpatient (CLI) | payer OTHER, SELFPAY | END | disposition home or self-care (01) | PROVIDERS: PCP Family Medicine; Referring Provider Obstetrics & Gynecology; Visit Provider Obstetrics & Gynecology | DX: Z34.93 Encounter for supervision of normal pregnancy, unspecified, third trimester (principal); Z3A.36 36 weeks gestation of pregnancy | CPT/HCPCS: 87081 ==

== ENCOUNTER → 2022-02-18 | Outpatient (CLI) | payer OTHER, SELFPAY ==
--- NOTE | 2022-02-18 15:42 | US_ITS ---
STUDY: SECOND AND THIRD TRIMESTER OBSTETRICAL ULTRASOUND - LIMITED REASON FOR EXAM: Female, 31 years old, growth -- 36 weeks. LMP: 06/03/2021 PRIOR ULTRASOUND: Obstetric ultrasound from 01/19/2022 TECHNIQUE: Transabdominal obstetric pelvic ultrasound performed. TECHNICAL QUALITY: Adequate. FINDINGS: Single live intrauterine fetus in cephalic presentation with heart rate 133 BPM. Grade 2 anterior placenta with no placenta previa. Poorly visualized cervix. Amniotic fluid index within normal limits, 11.6 cm. Maternal adnexa not imaged. anatomic survey not performed. BIOMETRIC MEASUREMENTS: BIPARIETAL DIAMETER: 8.73 cm which corresponds to 35 weeks 2 days. HEAD CIRCUMFERENCE: 32.19 cm which corresponds to 36 weeks 2 days. ABDOMINAL CIRCUMFERENCE: 30.53 cm which corresponds to 34 weeks 3 days. FEMORAL LENGTH: 6.92 cm which corresponds to 35 weeks 4 days. Age by LMP: 37 weeks, 1 day. KRISTA by LMP: 03/10/2022. age by prior US: 35 weeks, 4 days. KRISTA by prior US: 03/21/2022. age by current US: 35 weeks, 0 days. KRISTA by current US: 03/25/2022. Estimated weight: 2576 grams, +/- 386 grams, 12th percentile. US/OB Limited With Biometrics IMPRESSION: Single live intrauterine with no acute abnormality. EGA by today''s ultrasound is 35 weeks 0 days. Electronically Signed: Mika Lara MD at 1:17 EDT ,
== END | disposition home or self-care (01) ==
LOC: US 15:41
PROVIDERS: PCP Family Medicine; Referring Provider Obstetrics & Gynecology; Visit Provider Obstetrics & Gynecology
DX: O98.513 Other viral diseases complicating pregnancy, third trimester (principal); U07.1 COVID-19; Z3A.35 35 weeks gestation of pregnancy
CPT/HCPCS: 76816

== ENCOUNTER 2022-03-07 22:20 | Inpatient (IN) | payer OTHER, SELFPAY ==
[2022-03-07] VITALS (11 sets, daily range): BP systolic 115–135; BP diastolic 66–82; PULSE 63–102; TEMP 36.4–36.7; O2SAT 93–100; BMI 24.0
[2022-03-07] MEDS: LACTATED RINGERS 500 ML 999 ML IV (22:35)
[2022-03-07 22:48] LABS: Absolute Lymphocyte Count 2.25 X10^3/uL (0.83-4.51); Basophil# 0.01 X10^3/uL; Basophil% 0.1 % (0-1); Eosinophil# 0.09 X10^3/uL; Hematocrit 36.6 % (37-47); Hemoglobin 12.5 g/dL (12.0-15.0); Lymphocyte # 2.25 X10^3/ul (0.83-4.51); Lymphocyte % 25.3 % (19-41); Mean Corp Hgb Conc 34.2 g/dL (32-36); Mean Corpuscular Hgb 32.6 pg (27.0-32.0); Mean Corpuscular Volume 95.3 fL (81-99); Monocyte# 0.51 X10^3/uL; Monocyte% 5.7 % (0-10); NRBC Flagged by Analyzer 0 % (0-5); Neutrophil # 5.99 X10^3/uL (2.7-7.7); Neutrophil % 67.6 % (47-70); Platelet Count 246 K/mm3 (150-450); RBC Distribution Width CV 13.3 % (11.6-14.6); RBC Distribution Width SD 46.4 fl (35.1-43.9); Red Blood Count 3.84 M/mm3 (4.2-5.4); White Blood Count 8.9 K/mm3 (4.4-11.0)
[2022-03-07] MEDS: Lactated Ringers 1,000 ML 200 ML IV (23:15)
--- NOTE | 2022-03-07 23:37 | HP.PCM.OB_ITS ---
HPI - General General Date of Admission: 03/07/22 HPI Narrative MAGGIE PETERSON, is a 31 F who presents IAL 7cm dilated with regualr ctx. she denies any vb lof admits good fm. Maternal Data Information KRISTA Calculator Estimated Delivery Date Method Current WG Current Estimate 03/10/22 Ultrasound #2 39w 4d Other Estimates 02/03/22 LMP (Certain) 44w 4d 03/16/22 Ultrasound #1 38w 5d PFSH PFSH Medical History no medical history Home Medications vitamin#30 30 mg iron-10 mg iron-folic acid 1 mg-omg3 capsule cap PO Check with primary doctor 11/04/20 [History Last Taken 03/07/22 20:30 1 tablet] nystatin 100,000 unit/gram topical cream 1 applic topical BID #30 grams 09/11/21 [Rx Last Taken Unknown] Flucelvax Quad [id number] (PF) 60 mcg (15 mcg x 4)/0.5 mL IM syringe (flu vac qs 2021(6 ms up)CD(PF)) 0.5 ml IM ONCE #0.5 mL 03/05/22 [Clinic Last Taken Unknown] Allergy/AdvReac Type Severity Reaction Status Date / Time No Known Allergies Allergy Verified 03/05/22 15:46 Family History Father Cancer throat Family History no significant family his Surgical History no surgical history Social History adopted: No household members: spouse, children and other details: step son housing: apartment number of children: 1 current occupational status: employed 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 Date Name GA/Weeks Outcome Route Bth Weight Infant Gen Labor Lgth Anesthesia Del Locatn Provider FOB 09/26/20 Anurag 39 live - full term Male [facility] Jamel Delivery Date: 09/26/20 Last Updated by: Barbara Paez IOL for oligohydramnios, uncomplicated delivery Visit Details Expected Delivery Route/Plan Labor Preferences- CB/BF classes: [] labor support person: [] labor intervention preferences: [] pain management options preferred: [] cut cord/dad catch: [] : [] PP control planned: [] discussed possible routes of delivery and associated risks: [] special requests: [] Plans Covid status: discussed Flu vaccine: discussed Tdap vaccine:given Rhogam: na LARC form signed: [] movement and labor precautions reviewed. Problem list reviewed and updated with the most current plan of care details and appropriate orders placed. Relevant counseling for the gestational age provided. Continue routine care and follow up unless otherwise noted in visit notes/problem list details OB Flowsheet Initial Weight: Not Recorded Date -?-?-?-?-?-?-?-?-?-?-?-?- EGA Weight BP Urine Prot -?-?-?-?-?-?-?-?-?-?-?-?- Glucose FHR FuHt Pres Dilation -?-?-?-?-?-?-?-?-?-?-?-?- Effaced St Visit Note 08/13/21 -?-?-?-?-?-?-?-?-?-?-?-?- 10w 1d 127 lb 130/80 -?-?-?-?-?-?-?-?-?-?-?-?- -?-?-?-?-?-?-?-?-?-?-?-?- JV- CRL off from LMP and 6 week scan. KRISTA 03/10/22 09/11/21 -?-?-?-?-?-?-?-?-?-?-?-?- 14w 2d 126 lb 110/70 Negative -?-?-?-?-?-?-?-?-?-?-?-?- Negative 154 -?-?-?-?-?-?-?-?-?-?-?-?- JV- pt has cold symptoms and a spot of hyperpigmented lesioned area that she thinks looks like a yeast infection she had in the past. I agree. will try nystatin cream. safe OTC meds in discussed. 10/05/21 -?-?-?-?-?-?-?-?-?-?-?-?- 17w 5d 127 lb 2 oz 110/58 Nega tive -?-?-?-?-?-?-?-?-?-?-?--?- Negative 143 -?-?-?-?-?-?-?-?-?-?-?-?- -No concerns. No VB, LOF. MFM 10/1211/06/21 -?-?-?-?-?-?-?-?-?-?-?-?- 22w 2d 132 lb 110/70 Negative -?-?-?-?-?-?-?-?-?-?-?-?- Negative 140 -?-?-?-?-?-?-?-?-?-?-?-?- SM- n ovb lof go od fm no regular ctx 12/04/21 -?-?-?--?-?-?-?-?-?-?-?-?- 26w 2d 132 lb 110/70 Negative -?-?-?-?-?-?-?-?-?-?-?-?- Negative 140 26 -?-?-?-?-?-?-?-?-?-?-?-?- SM- no vb lof go od fm no regular ctx 12/18/21 -?-?-?-?-?-?-?-?-?-?-?-?- 28w 2d 132 lb 8 oz 106/68 Nega tive -?-?-?-?-?-?-?-?-?-?-?-?- Negative 140 28 -?-?-?-?-?-?--?-?-?-?-?-?- SM- no vb lof go od fm nor egualr ctx 01/01/22 -?-?-?-?-?-?-?-?-?-?-?-?- 30w 2d 135 lb 8 oz 104/76 Nega tive -?-?-?-?-?-?-?-?-?-?-?-?- Negative 155 30 -?-?-?-?-?-?-?-?-?-?-?-?- JV- no lof, vagi nal bleeding, or dec fm. 01/13/22 -?-?-?-?-?-?-?-?-?-?-?-?- 32w 0d 137 lb 101/64 Negative -?-?-?-?-?-?-?-?-?-?-?-?- Negative 134 29 -?-?-?-?-?-?-?-?-?-?-?-?- JV- tdap today. thinks had covid in first month of and small for dates today. ordering ultrasound. 01/29/22 -?-?-?-?-?-?-?-?-?-?-?-?- 34w 2d 138 lb 120/72 -?-?-?-?-?-?-?-?-?-?-?-?- 135 31 -?-?-?-?-?-?--?-?-?-?-?-?- SM- no vb lof go od fm no regular ctx 02/12/22 -?-?-?-?-?-?-?-?-?-?-?-?- 36w 2d 140 lb 133/74 Negative -?-?-?-?-?-?-?-?-?-?-?-?- Negative 145 32 -?-?-?-?-?-?-?-?-?-?-?-?- JV- no lof, vagi nal bleeding, or dec fm. has growth scan planned for next week for small for dates. 02/19/22 -?-?-?-?-?-?-?-?-?-?-?-?- 37w 2d 139 lb 8 oz 112/72 Nega tive -?-?-?-?-?-?-?-?-?-?-?-?- Negative 144 33 Cephalic 1 -?-?-?-?-?-?-?-?-?-?-?-?- 60 -2 JV- growth scan shows baby in 12th %, normal CLARISSA. plan for weekly NST's. pt prefers not to be induced, will continue to follow fundal heights and NST's 02/26/22 -?-?-?-?-?-?-?-?-?-?-?-?- 38w 2d 143 lb 122/80 Negative -?-?-?-?-?-?-?-?-?-?-?-?- Negative 130 35 Cephalic -?-?-?-?-?-?-?-?-?-?-?-?- SM- no vb lof go od fm no reuglar ctx FH growing 03/05/22 -?-?-?-?-?-?-?-?-?-?-?-?- 39w 2d 142 lb 212 lb 6 oz 117/77 128/82 Negative -?-?-?-?-?-?-?-?-?-?-?-?- Negative 134 35 Cephalic 2 -?-?-?-?-?-?-?-?-?-?-?-?- 70 -2 JV- CLARISSA to day is 8. No lof, vaginal bleeding, or dec fm. no complaints. plan for IOL due to SGA, favorable cx and term next week on her due date. 03/07/22 -?-?-?-?-?-?-?-?-?-?-?-?- 39w 4d 140 lb 6.951 oz 115/ 66 115/66 135/82 135/82 -?-?-?-?-?-?-?-?-?-?-?-?- -?-?-?-?--?-?-?-?-?-?-?-?- NST FHR Rate Baby A Baseline: 140 Variability:: Moderate Accelerations:: 15 x 15 Decelerations:: Variable (isolated) NST Reactive:: Yes FHR Category:: Category II Uterine Activity:: q3-5 ROS Constitutional Constitutional: Reports systems reviewed and no addt'l complaints, except as documented ENT HEENT: Reports systems reviewed and no addt'l complaints, except as documented Cardiovascular Cardiovascular: Reports systems reviewed and no addt'l complaints, except as documented Respiratory/Chest Respiratory/Chest: Reports systems reviewed and no addt'l complaints, except as documented Gastrointestinal Gastrointestinal: Reports systems reviewed and no addt'l complaints, except as documented and nausea; Denies abdominal pain Genitourinary Genitourinary: Reports systems reviewed and no addt'l complaints, except as documented, contractions Details: present and frequency (regular ) and movement Details: present Musculoskeletal Musculoskeletal: Reports systems reviewed and no addt'l complaints, except as documented Integumentary Integumentary: Reports as per HPI Neurologic Neurologic: Reports systems reviewed and no addt'l complaints, except as documented Endocrine Endocrinology: Reports systems reviewed and no addt'l complaints, except as documented Vital Signs Vital Signs Vital Signs: 03/07/22 22:13 03/07/22 22:13 03/07/22 22:15 Temperature Temperature Source Pulse Rate 85 86 Blood Pressure 115/66 BP Systolic 115 BP Diastolic 66 Pulse Ox 03/07/22 22:15 03/07/22 22:13 03/07/22 22:13 Temperature Temperature Source Temporal Pulse Rate Blood Pressure 115/66 BP Systolic 115 BP Diastolic 66 Pulse Ox 97 03/07/22 22:13 03/07/22 22:13 03/07/22 22:13 Temperature 98.0 F Temperature Source Pulse Rate 85 Blood Pressure BP Systolic BP Diastolic Pulse Ox 97 03/07/22 23:19 03/07/22 23:19 03/07/22 23:21 Temperature Temperature Source Pulse Rate 63 78 Blood Pressure 135/82 H BP Systolic 135 BP Diastolic 82 Pulse Ox 03/07/22 23:21 03/07/22 23:19 03/07/22 23:19 Temperature Temperature Source Temporal Pulse Rate Blood Pressure 135/82 H BP Systolic 135 BP Diastolic 82 Pulse Ox 98 03/07/22 23:19 03/07/22 23:19 03/07/22 23:19 Temperature 97.5 F L Temperature Source Pulse Rate 78 Blood Pressure BP Systolic BP Diastolic Pulse Ox 98 03/07/22 23:24 03/07/22 23:24 03/07/22 23:26 Temperature Temperature Source Pulse Rate 83 83 Blood Pressure BP Systolic BP Diastolic Pulse Ox 94 03/07/22 23:26 Temperature Temperature Source Pulse Rate Blood Pressure BP Systolic BP Diastolic Pulse Ox 98 Weight Weight: 140 lb 6.951 oz Body Mass Index (BMI) 24.0 Physical Exam Const alert, oriented x3 and healthy appearing Constitutional Narrative: uncomfortable with contractions HEENT normocephalic and moist oral mucous membranes Head and Scalp: atraumatic Neck full ROM, no lymphadenopathy, supple and thyroid normal General: trachea midline Thyroid: thyroid normal Lymph Lymphatic: no lymphadenopathy noted Chest inspection of chest normal Resp normal respiratory effort Cardio regular rate GI normal to inspection, nondistended, normoactive bowel sounds, soft to palpation and non-tender Inspection: gravid external exam normal Bimanual Exam - Vag & Uterus: uterus non-tender Manual OB Exam: estimated gestational size appropriate, presentation cephalic, dilated, effaced and station Extremity normal to inspection General Extremity: Negative for edema Skin no rashes or lesions noted Neuro deep tendon reflexes 2+ bilaterally Motor Exam: strength 5/5 throughout and clonus absent Psych mental status grossly normal Labs Labs Labs: 2 Blood Type O POSITIVE Antibody Screen NEGATIVE Hct 36.6 % (37-47) L Hgb 12.5 g/dL (12.0-15.0) Obstetrics US Syphilis Total Ab Non-reactive Rubella IgG Antibody Reactive (Nonreactive) Hep Bs Antigen Non-Reactive (Nonreactive) Chlamydia DNA ([place]) Negative (Negative) Neisseria gonorrhoeae DNA ([place]) Negative (Negative) HIV 1&2 Antibody Non-Reactive (Nonreactive) Glucose 1 Hr 50 gm 110 mg/dL (70-140) Rhogam given: No Assessment & Plan (1) Active labor at term: (2) Short interval between pregnancies affecting , antepartum: COMMENT: del 01/2021 (3) : QUALIFIERS: Weeks of gestation: 39 weeks Qualified Code(s): Z3A.39 - 39 weeks gestation of COMMENT: GBS neg. Prior neg carrier. NOB labs normal NIPT low risk, nl anatomy, 8/9 low nl growth, (4) Supervision of other normal : COMMENT: PRR KRISTA:03/16/22, girl PC:Anurag. Spouse:Chris(Will). (5) Lab test positive for detection of COVID-19 virus: COMMENT: Son positive 07/08/21 and she was sick but did not test. Start ASA 81mg and growth US 32 and 36 wk (6) Uterine size-date discrepancy, third trimester: COMMENT: growth 12 %ile, NST weekly due to borderline and lower FH. patient prefers exp management. reviewed kick counts. PLAN: Plan admit IAL desires epi if able
--- NOTE | 2022-03-07 23:39 | EX.PCM.OBRPT ---
Assessment & Plan (1) Short interval between pregnancies affecting , antepartum: COMMENT: del 01/2021 (2) : QUALIFIERS: Weeks of gestation: 39 weeks Qualified Code(s): Z3A.39 - 39 weeks gestation of COMMENT: GBS neg. Prior neg carrier. NOB labs normal NIPT low risk, nl anatomy, 8/9 low nl growth, (3) Supervision of other normal : COMMENT: PRR KRISTA:03/16/22, girl PC:Anurag. Spouse:Chris(Will). (4) Lab test positive for detection of COVID-19 virus: COMMENT: Son positive 07/08/21 and she was sick but did not test. Start ASA 81mg and growth US 32 and 36 wk (5) Uterine size-date discrepancy, third trimester: COMMENT: growth 12 %ile, NST weekly due to borderline and lower FH. patient prefers exp management. reviewed kick counts. (6) Active labor at term: (7) Vaginal delivery: COMMENT: SM 39 girl IAL Maternal Data Information KRISTA Calculator Estimated Delivery Date Method Current WG Current Estimate 03/10/22 Ultrasound #2 39w 5d Other Estimates 02/03/22 LMP (Certain) 44w 5d 03/16/22 Ultrasound #1 38w 6d Vaginal Delivery Operative Information Date of Procedure: 03/08/22 Pre-Operative Diagnosis: IAL Post-Operative Diagnosis: same Surgery / Procedure Performed: Spontaneous Vaginal Delivery Type of Anesthesia: Epidural Special Medications: none Estimated Blood Loss: 200 Fluids Replaced: crystalloid Findings Description of Procedure: Patient began pushing and delivered the head in the CRISTOBAL presentation. The head was delivered atraumatically and a loose nuchal cord ?1 was identified and the delivered through without complication. The anterior and posterior shoulders delivered without complication followed by the rest of the and the infant was placed on the maternal abdomen. Delayed cord clamping was employed for approximately 60 seconds. Cord was clamped and cut and gentle traction was applied to the cord and the placenta delivered spontaneously immediately following it was noted to be intact with three-vessel cord. The perineum and vagina were inspected and noted to have a first degree laceration repaired in theusual fashion wtih 3-0 rapide. EBL was 200. Patient and tolerated delivery well. Presentation: CRISTOBAL Amniotic Membrane Rupture Type: Artificial Amniotic Fluid Description: Clear Placental Delivery Description: Spontaneous Placenta Disposition: [facility] Cord Vessel Description: 3 Vessels Cord Entanglement: Around neck x 1, loose Delayed Cord Clamping: Yes Post Vaginal Delivery Medications Given After Delivery: IV Pitocin Episiotomy Description: None Laceration: Perineal Extension/lac and 1st degree Complication Complications: None Procedures Urinary/Genital [id number]: [id number] Vaginal Delivery [facility]
[2022-03-07] MEDS: fentaNYL-bupivacaine (epidural) 100 ML BAG EPIDURAL (23:40)
--- NOTE | 2022-03-07 23:40 | DCINST_ITS ---
Discharge Instructions Diet Discharge Diet: No restrictions Activity Discharge Activity: Return to Normal Activity, May Drive, May Shower and May Take a Tub Bath (in 4 weeks) May resume sexual activity in: 6-8 weeks (after seen by OB provider) Weight Bearing Status: Full weight bearing Lifting Restrictions: none Dressing / Incision Call your doctor if you observe: Fever of 101 or Higher, Inability to urinate, Using more than 1 pad per hour (for more than 2 hours in a row or more), Shortness of breath, Dizziness, Chest pain and - (headache not controlled with tylenol, change in vision) Follow Up Care When: in 6 weeks for visit, call the office to make the appointment. If you had elevated blood pressures call the office to be seen within 1 week. Test Results: Test results from this visit will be discussed in further detail at your follow- up appointment, if applicable. Discharge Plan Admission Admit Date/Time: 03/07/22 22:20 Attending Provider: Josephine Simental Primary Care Provider: Qiana Perkins Discharge Orders/Prescriptions Prescriptions: No Action PNV #[id number] 30 mg iron-10 mg iron-1 mg capsule PO nystatin 100,000 unit/gram cream 1 applic topical BID Qty: 30 0RF Flucelvax Quad (PF) 60 mcg (15 mcg x 4)/0.5 mL syringe 0.5 ml IM ONCE Qty: 0.5 0RF Referrals / Follow Up: Qiana Perkins MD [Primary Care Provider] - Disposition Disposition (needs filled in before D/C Order can be placed): Home, Self Care
[2022-03-08] VITALS (37 sets, daily range): BP systolic 108–139; BP diastolic 55–73; PULSE 50–96; RESP 16; TEMP 36.5–37.2; O2SAT 97–99
[2022-03-08] MEDS: Oxytocin 30 units/NS 500 ml 30 UNITS/500 ML IV.SOLN 334 UNITS IV (00:12)
[2022-03-08] MEDS: 0.9% Saline Lock 10 ML Syringe IV (02:51)
[2022-03-09 02:18] VITALS: BP 120/57; PULSE 51; O2SAT 98
[2022-03-09 02:34] VITALS: BP 120/57; PULSE 52; RESP 16; TEMP 36.7; O2SAT 98
[2022-03-09 07:25] VITALS: BP 119/62; PULSE 50; PULSE 54; O2SAT 97
[2022-03-09 07:34] VITALS: O2SAT 97
[2022-03-09 07:39] VITALS: BP 119/62; PULSE 56; RESP 16; TEMP 36.5; O2SAT 97
--- NOTE | 2022-03-09 08:04 | PCM.PN.OB ---
Subjective Subjective Patient doing well without complaints. Tolerating PO. Ambulating and voiding without difficulty. feeding well. Denies chest pain, shortness of breath, calf pain/swelling, fevers, chills, lightheadedness. Objective Data Objective Data Vital Signs: Vital Signs Temp Pulse Resp BP Pulse Ox O2 Del Method 97.7 F L 56 L 16 119/62 97 Room Air 03/09/22 07:39 03/09/22 07:39 03/09/22 07:39 03/09/22 07:39 03/09/22 07:39 03/09/22 07:39 Oxygen Delivery Method Room Air Weight: 140 lb 6.951 oz Body Mass Index (BMI) 24.0 Intake & Output: Intake and Output for Last 24 Hours 03/07/22 03/08/22 03/09/22 23:59 23:59 23:59 Intake Total 500 / 500 690.00 / 690.00 Output Total 1000 / 1000 Balance 500 / 500 -310.00 / -310.00 Lab / Micro Data Result Diagrams: 03/07/22 22:33 Micro: Microbiology 03/07/22 22:33 Nasal Secretion SARS-CoV-2 Antigen (Rapid) - Final ROS Constitutional Constitutional: Reports systems reviewed and no addt'l complaints, except as documented Cardiovascular Cardiovascular: Reports systems reviewed and no addt'l complaints, except as documented Respiratory/Chest Respiratory/Chest: Reports systems reviewed and no addt'l complaints, except as documented Gastrointestinal Gastrointestinal: Reports systems reviewed and no addt'l complaints, except as documented Physical Exam Const alert, oriented x3 and no apparent distress HEENT Head and Scalp: atraumatic Resp normal respiratory effort GI soft to palpation and non-tender Bimanual Exam - Vag & Uterus: uterus non-tender Uterus Palpation: uterus fundus firm (below Umbilicus) Assessment & Plan (1) Vaginal delivery: COMMENT: SM 39 girl IAL PLAN: Plan s/p PPD # 1 1. routine post delivery care 2. breast feeding- support given 3. rh positive 4. rubella immune
== END 2022-03-09 09:00 | disposition home or self-care (01) | DRG 807 ==
LOC: WPOUT 22:22 → WP 22:22
PROVIDERS: Admitting Provider Obstetrics & Gynecology; PCP Family Medicine; Visit Provider Obstetrics & Gynecology
DX: O76 Abnormality in fetal heart rate and rhythm complicating labor and delivery (principal); Z37.0 Single live birth; M41.9 Scoliosis, unspecified; O26.843 Uterine size-date discrepancy, third trimester; O69.81X0 Labor and delivery complicated by cord around neck, without compression, not applicable or unspecified; Z3A.39 39 weeks gestation of pregnancy; O70.0 First degree perineal laceration during delivery; Z87.59 Personal history of other complications of pregnancy, childbirth and the puerperium; O99.892 Other specified diseases and conditions complicating childbirth; Z20.822 Contact with and (suspected) exposure to COVID-19
CPT/HCPCS: 59025; 59050; 85025; 86850; 86900; 86901; 87811; 99218; J7120; A4216; G0378